=== PATIENT | female | born 1940 | race Caucasian/White ===

== ENCOUNTER → 2016-07-13 | Outpatient (CLI) | payer MEDICARE, OTHER ==
[~2016-07-13] MED LIST: DIOVAN PO; LEVOTHYROXINE PO; METFORMIN PO; atorvastatin PO; metoprolol PO
--- NOTE | 2016-07-13 10:06 | RADRPT ---
PROCEDURE: XR right knee. CLINICAL INDICATION: Knee pain TECHNIQUE: AP weightbearing, PA weightbearing, lateral weightbearing and sunrise views are availab le for review. COMPARISON: 12/30/2015 FINDINGS: There is moderate osteoarthrosis involving the medial tibial femoral compartment and mild osteoarthr osis involving the patellofemoral compartment. This is associated with joint space narrowing and ost eophytosis. There is otherwise normal mineralization, architecture and alignment. No fractures are identified. No osseous lesions are identified. The soft tissues are unremarkable. IMPRESSION: Moderate osteoarthrosis involving the medial tibial femoral compartment and mild osteoarthrosis invo lving the patellofemoral compartment. RPTAT: [facility] .Dino Escalante MD, MD Date Time Electronically viewed and signed by .Dino Escalante MD, on 07/13/2016 10:06 .B/
== END | disposition home or self-care (01) ==
LOC: HKI 08:30
PROVIDERS: ATTEND Orthopaedic Surgery
DX: M17.11 Unilateral primary osteoarthritis, right knee (principal); S83.231D Complex tear of medial meniscus, current injury, right knee, subsequent encounter; X58.XXXD Exposure to other specified factors, subsequent encounter
CPT/HCPCS: 20610; 73564; G0463; J1030